=== PATIENT | male | born 2005 | race Hispanic/Latino ===

== ENCOUNTER 2025-10-03 16:02 | Emergency (ER) | payer MEDICAID ==
[~2025-10-03] VITALS: Ht 162.6 cm; Wt 45.4 kg
--- NOTE | 2025-10-03 16:09 | NUR ---
PT JUST NOW PLACED IN MY ED HALLWAY A1
[2025-10-03 16:34] LABS: APPEARANCE,URINE CLEAR (CLEAR); GLUCOSE, URINE (UA) NEGATIVE (NEGATIVE); LEUKOCYTE ESTERASE ,URINE NEGATIVE Leu/uL (NEGATIVE); NITRATE,URINE NEGATIVE (NEGATIVE); OCCULT BLOOD,URINE NEGATIVE (NEGATIVE)
[2025-10-03 16:36] LABS: IMMATURE GRANULOCYTE ABSOLUTE 0.06 K/uL (0-1); NUCLEATED RED BLOOD CELLS 0.0 % (0.0-0.19); PLATELET COUNT (AUTO) 281 K/uL (130-400); RED BLOOD CELL COUNT(AUTO) 5.55 MIL/uL (4.50-6.20); RED CELL DISTRIBUTION WIDTH 12.3 % (11.0-15.5); WHITE BLOOD COUNT (AUTO) 12.1 K/uL (4.8-10.8)
[2025-10-03 16:37] LABS: ADD UA MICROSCOPIC NO
[2025-10-03 16:44] LABS: CREATININE 0.8 mg/dL (0.5-1.3); GLOMERULAR FILTR. RATE CALC 128.0 mL/min (>90); GLUCOSE,RANDOM 102.0 mg/dL (70-105); SODIUM SERUM 137.0 mmol/L (136-145); UREA NITROGEN, BLOOD 11.0 mg/dL (7-18)
[2025-10-03 16:48] LABS: ASPARTATE AMINOTRANSFERASE 36.0 U/L (10-37); TOTAL PROTEIN, SERUM 8.1 g/dL (6.0-8.3)
[2025-10-03] MEDS: FAMOTIDINE 20MG VIAL IV ONE (16:51)
[2025-10-03] MEDS: 0.9%NACL 1000ML 1,000 ML IV STA (16:53)
--- NOTE | 2025-10-03 17:33 | NUR ---
UPON REASSESSMENT PER JOLYNN WHARF TENDER HEAD, PT NOW C/O SPECIFIED DISCOMFORT TO RLQ WHEN BEFORE HE STATED HE HAD GENERALIZED ABD DISCOMFORT DURING MY ASSESSMENT AND HER PREVIOUS ASSESSMENT
--- NOTE | 2025-10-03 17:38 | NUR ---
PT ENROUTE TO CT SCAN VIA STRETCHER
--- NOTE | 2025-10-03 17:43 | ERN ---
ED Note History of Present Illness Stated Complaint: N/V/D Chief Complaint: Nausea,Vomiting,Diarrhea Time Seen by MD: 16:06 Time Seen by Midlevel: 16:10 Dictation: 20-year-old male coming in with complaints of nausea, vomiting diarrhea for three days. Patient states he has has a epigastric pain and right lower quadrant pain, denies any medical or surgical history. Has not any blood in stool or emesis. Allergies: Coded Allergies: No Known Allergies (Unverified Allergy, Unknown, 10/03/25) Past Medical History Past Medical History: No Pertinent History Surgical History: None Review of System Dictation Constitutional: Negative for fever,chills, and weight loss Eyes: Negative for injury, pain,redness, and discharge ENT: Negative for injury,pain or swelling Cardiovascular: Negative for chest pain, palpitations, and edema Respiratory: Negative for shortness of breath, cough, and wheezing, Abdomen/GI: Epigastric pain and right lower quadrant pain with nausea and vomiting and diarrhea Back: Negative for injury and pain : Negative for injury, bleeding and discharge MS/Extremity: Negative for injury and deformity Skin: Negative for rash, and discoloration Neuro: Negative for headache, weakness, numbness, tingling, and seizure Psych: Negative for suicide ideation, homicidal ideation, and hallucinations Review of Systems: was completed Initial Vital Sign VS Vital Signs Date Time Temp Pulse Resp B/P (MAP) Pulse Ox O2 Delivery O2 Flow Rate FiO2 10/03/25 16:03 98.4 91 16 138/86 97 Room Air 0 Physical Exam Dictation General: awake, alert, NAD Head/Face: Normocephalic, atraumatic Eyes: PERRL, EOMI, vision at baseline ENT: oral cavity clear, TMs clear, no signs of infection Neck: Trachea midline, supple, no nuchal rigidity Cardiovascular: RRR, normal S1/S2, No MRGs, no JVD Respiratory: CTAB, no respiratory distress, No rales or wheezes Abdomen: Soft, tenderness to palpation to the right lower quadrant, no guarding, no rebound tenderness Skin: Warm, dry, normal turgor, no rash MS/Extremity: Pulses equal, no cyanosis, neurovascular intact, FROM Neuro: COAx4, GCS 15, strength 5/5, CN 2-12 intact, normal cerebellar exam, normal gait, Psych: Normal behavior, mood, and affect normal Results (Laboratory/Radiology) Laboratory/Radiology Laboratory Tests Test 10/03/25 16:23 10/03/25 16:30 Urine Color LIGHT-YELLOW (YELLOW) Urine Appearance CLEAR (CLEAR) Urine pH 5.5 (5.0-8.0) Urine Specific [place] 1.016 (1.001-1.031) Urine Protein NEGATIVE mg/dL (NEGATIVE) Urine Glucose (UA) NEGATIVE mg/dL (NEGATIVE) Urine Ketones NEGATIVE mg/dL (NEGATIVE) Urine Occult Blood NEGATIVE (NEGATIVE) Urine Nitrate NEGATIVE (NEGATIVE) Urine Bilirubin NEGATIVE mg/dL (NEGATIVE) Urine Urobilinogen 0.2 mg/dL (0.2-1.0) Urine Leukocyte Esterase NEGATIVE [place]/uL White Blood Count 12.1 K/uL (4.8-10.8) H Red Blood Count 5.55 MIL/uL (4.50-6.20) Hemoglobin 16.8 g/dL (14.0-18.0) Hematocrit 46.5 % (42-54) Mean Corpuscular Volume 83.8 fL (79-99) Mean Corpuscular Hemoglobin 30.3 pg (27.0-33.0) Mean Corpuscular Hemoglobin Concent 36.1 g/dL (32.0-36.0) H Red Cell Distribution Width 12.3 % (11.0-15.5) Platelet Count 281 K/uL (130-400) Mean Platelet Volume 9.9 fL (7.5-10.5) Immature Granulocyte % (Auto) 0.5 % (0-1) Neutrophils (%) (Auto) 76.9 % (40.0-77.0) Lymphocytes (%) (Auto) 17.5 % (21.0-51.0) L Monocytes (%) (Auto) 4.6 % (3.0-13.0) Eosinophils (%) (Auto) 0.3 % (0.0-8.0) Basophils (%) (Auto) 0.2 % (0.0-5.0) Neutrophils # (Auto) 9.3 K/uL (1.8-7.7) H Lymphocytes # (Auto) 2.1 K/uL (1.0-4.8) Monocytes # (Auto) 0.6 K/uL (0.1-1.0) Eosinophils # (Auto) 0.04 K/uL (0.00-0.70) Basophils # (Auto) 0.02 K/uL (0.00-0.20) Absolute Immature Granulocyte (auto 0.06 K/uL (0-1) Nucleated Red Blood Cells 0.0 % (0.0-0.19) Red Blood Cell Morphology See comments Sodium Level 137 mmol/L (136-145) Potassium Level 3.9 mmol/L (3.5-5.1) Chloride Level 101 mmol/L (101-111) Carbon Dioxide Level 28 mmol/L (21-32) Blood Urea Nitrogen 11 mg/dL (7-18) Creatinine 0.8 mg/dL (0.5-1.3) Glomerular Filtration Rate Calc 128 mL/min (>90) Random Glucose 102 mg/dL (70-105) Total Calcium 9.2 mg/dL (8.5-10.1) Total Bilirubin 0.7 mg/dL (0.2-1.0) Direct Bilirubin 0.2 mg/dL (0.0-0.3) Aspartate Amino Transf (AST/SGOT) 36 U/L (10-37) Alanine Aminotransferase (ALT/SGPT) 72 U/L (12-78) Alkaline Phosphatase 107 U/L (50-136) Total Protein 8.1 g/dL (6.0-8.3) Albumin 4.3 g/dL (3.5-5.0) Lipase 25 U/L (16-77) Labs Reviewed?: Yes CT Scan Comment: [place] [address] IMAGING REPORT Signed PATIENT: KINZA KOHLER MR#: [id number] : 2005 SEX: M AGE: 20 LOCATION: [facility] ORDER 26 STATUS: REG ER REPORT#: [id number] SERVICE 25 REASON: rlq , epigastric pain ORDERING PHYSICIAN: JOLYNN FNIN CNP PROCEDURE: ABD PEL WO - CT ABDOMEN/PELVIS W/O CONTRAST EXAM: CT Abdomen and Pelvis Without IV contrast CLINICAL HISTORY: rlq , epigastric pain TECHNIQUE: Axial computed tomography images of the abdomen and pelvis without intravenous contrast. CONTRAST: No IV contrast. COMPARISON: None provided. FINDINGS: LUNG BASES: The lung bases appear clear. No pleural effusions are seen. LIVER: Unremarkable. GALLBLADDER AND BILE DUCTS: The gallbladder appears within normal limits. No radioopaque gallstones are seen. No biliary ductal dilatation is evident. PANCREAS: Unremarkable. SPLEEN: Unremarkable. ADRENAL GLANDS: Unremarkable. KIDNEYS, URETERS, AND BLADDER: The kidneys appear within normal limits. There is no hydronephrosis or hydroureter. No urinary calculi are seen. STOMACH AND BOWEL: Unremarkable appearance of the stomach and bowel. No evidence of bowel obstruction. No evidence suggesting enteritis or colitis. APPENDIX: Normal appendix. PERITONEUM: No free fluid. No free air. LYMPH NODES: No lymphadenopathy is evident. REPRODUCTIVE: Unremarkable as visualized. VASCULATURE: No evidence of abdominal aortic aneurysm. BONES: No aggressive appearing osseous lesion. No acute osseous pathology evident. IMPRESSION: No acute intra-abdominal or pelvic abnormality. /[place] DICTATED BY: ESTEPHANIA BALLARD MD DATE: 10/03/251910 ELECTRONICALLY SIGNED BY: ESTEPHANIA BALLARD MD DATE: 10/03/251910 ED Course ED Course Orders Procedure Category Date Status Time Cbc With Differential LAB 10/03/25 Complete 16:18 Basic Metabolic Panel LAB 10/03/25 Complete 16:18 Hepatic Function Panel LAB 10/03/25 Complete 16:18 Lipase LAB 10/03/25 Complete 16:18 Urinalysis Profile LAB 10/03/25 Complete 16:18 0.9%Nacl 1000ml (Ns PHA 10/03/25 In Process 1000ml) 16:18 Ondansetron 4mg Inj PHA 10/03/25 Complete (Zofran 4mg Inj) 16:30 Famotidine 20mg Vial PHA 10/03/25 Complete (Pepcid 20mg Vial) 16:30 Ct Abdomen/Pelvis W/O CT 10/03/25 Resulted Contrast 17:26 Current Medications Medications (Trade) Dose Ordered Sig/Aileen Route PRN Reason Start Time Stop Time Status Last Admin Dose Admin Famotidine (Pepcid 20mg Vial) 20 mg ONCE ONCE IV 10/03/25 16:30 10/03/25 16:31 DC 10/03/25 16:51 Ondansetron HCl (zoFRAN 4MG INJ) 4 mg ONCE ONCE IVP 10/03/25 16:30 10/03/25 16:31 DC 10/03/25 16:51 Sodium Chloride 1,000 ml @ 100 mls/hr Q10H STAT IV 10/03/25 16:18 10/04/25 02:17 10/03/25 16:53 Vital Signs Date Time Temp Pulse Resp B/P (MAP) Pulse Ox O2 Delivery O2 Flow Rate FiO2 10/03/25 16:03 98.4 91 16 138/86 97 Room Air 0 Medical Decision Making MDM MDM: 20-year-old male coming in with complaints of nausea, vomiting diarrhea for three days. Patient states he has has a epigastric pain and right lower quadrant pain, denies any medical or surgical history. Has not any blood in stool or emesis.White count is 12, no anemia, no thrombocytopenia. Chemistry unremarkable, no transaminitis, no lipase elevation. UA shows no evidence of urinary tract infection. On reassessment patient states she is still having pain to the right lower quadrant. CT scan ordered at this time to rule out any appendicitis. He is going to is negative for appendicitis, no acute findings in the CAT scan. Patient will be discharged to follow up outpatient with the PCP. More than likely his symptoms are due to gastroenteritis. Educated to stay hydrated and to avoid eating any spicy, greasy foods. Differential diagnosis: Gastroenteritis, appendicitis, gastritis Rationale: Tests considered and ordered secondary to shared decision making incl ude: Previous outside records reviewed: Old ER visits. Risk of complication and/or morbidity or mortality of patient management: None Medications-Per medication reconciliation Need for hospitalization: Patient does not meet criteria for hospitalization. Need for emergency major/minor surgery: No There are no social concerns with this patient. Prescription drug management Prescriptions will include symptomatic care Patient's prior external medical records from other ER visits were reviewed by me as indicated. Prior testing and results from previous visits were reviewed. Prior tests were taken into account with medical decision making and resource utilization, independent historian/historians were used to obtain complete medical history. I independently interpreted the test that were performed, results were reviewed by me and considered findings on radiology if ordered. Medical management and examination interpretation discussions were had by me with other qualified healthcare professionals as indicated for the patient's care. DX & DISP Disposition: Discharge Departure Impression: Primary Impression: Gastroenteritis Condition: Stable Scripts Famotidine (Pepcid) 20 Mg Tablet 1 TAB PO BID for 30 Days, #60 TAB 0 Refills Prov: JOLYNN FINN CNP 10/03/25 Ondansetron (Ondansetron Odt) 4 Mg Tab.rapdis 4 MG PO Q6HPRN PRN for nausea, #16 TAB 0 Refills Prov: JOLYNN FINN CNP 10/03/25 Additional Instructions: Stay hydrated. Avoid taking or eating any spicy, greasy foods. Follow up with the his primary doctor in 1-2 days. Referrals: OSCAR DUGGAN MD (PCP) Time of Disposition: 18:20 I have reviewed the case, and I agree with, Diagnosis and Plan JOLYNN FINN CNP Oct 03, 2025 17:43
--- NOTE | 2025-10-03 18:12 | HMCIMG ---
EXAM: CT Abdomen and Pelvis Without IV contrast CLINICAL HISTORY: rlq , epigastric pain TECHNIQUE: Axial computed tomography images of the abdomen and pelvis without intravenous contrast. CONTRAST: No IV contrast. COMPARISON: None provided. FINDINGS: LUNG BASES: The lung bases appear clear. No pleural effusions are seen. LIVER: Unremarkable. GALLBLADDER AND BILE DUCTS: The gallbladder appears within normal limits. No radioopaque gallstones are seen. No biliary ductal dilatation is evident. PANCREAS: Unremarkable. SPLEEN: Unremarkable. ADRENAL GLANDS: Unremarkable. KIDNEYS, URETERS, AND BLADDER: The kidneys appear within normal limits. There is no hydronephrosis or hydroureter. No urinary calculi are seen. STOMACH AND BOWEL: Unremarkable appearance of the stomach and bowel. No evidence of bowel obstruction. No evidence suggesting enteritis or colitis. APPENDIX: Normal appendix. PERITONEUM: No free fluid. No free air. LYMPH NODES: No lymphadenopathy is evident. REPRODUCTIVE: Unremarkable as visualized. VASCULATURE: No evidence of abdominal aortic aneurysm. BONES: No aggressive appearing osseous lesion. No acute osseous pathology evident. IMPRESSION: No acute intra-abdominal or pelvic abnormality. /[place]
[2025-10-03] MEDS ORDERED: ONDA-243 PO (18:20)
[2025-10-03] MEDS ORDERED: FAMO-136 PO (18:20)
[2025-10-03 18:30] VITALS: BP 136/82; PULSE 92; RESP 20; TEMP 98.2; O2SAT 99
== END 2025-10-03 18:37 | disposition home or self-care (01) ==
LOC: EDH 16:02
DX: K52.9 Noninfective gastroenteritis and colitis, unspecified (principal); R11.2 Nausea with vomiting, unspecified
CPT/HCPCS: 99285; 74176; 96374; 96361; 96375; 80076; 80048; 83690; 85025; 81003; 36415; J1308; J7030; J2405